=== PATIENT | female | born 1975 | race American Indian/Alaskan Native ===

== ENCOUNTER 2018-07-05 14:26 | Outpatient (CLI) | payer MEDICAID ==
--- NOTE | 2018-07-05 15:47 | Mammography Report ---
BILATERAL DIGITAL DIAGNOSTIC MAMMOGRAM with CAD and RIGHT BREAST ULTRASOUND: 07/05/18 15:00:00 CLINICAL: Right breast lump and pain. COMPARISON:04/06/16 FINDINGS: The breasts are heterogeneously dense, which may obscure small masses.No mass, suspicious architectural distortion or suspicious calcifications. Ultrasound of the right breast (including all four quadrants and the retroareolar area) was performed. A benign cyst at 10 o'clock 5 cm from nipple measures 6 x 4 x 4 mm and correlates with pain and tenderness. A benign cyst at 10 o'clock 3 cm from the nipple measures 7 x 4 x 7 mm and a retroareolar cyst at 6 o'clock measures 7 x 4 x 3 mm. No solid mass or shadowing. IMPRESSION: A few benign cysts and no suspicious finding. BI-RADS CATEGORY: 2 -- Benign RECOMMENDATION: Clinical followup and routine mammographic screening in one year. COMMENT: Patient follow-up letters are generated by our [employer] application.
== END 2018-07-05 14:27 | disposition home or self-care (01) ==
LOC: SPVWC 14:26
PROVIDERS: ATTEND Internal Medicine
DX: N60.01 Solitary cyst of right breast (principal)
CPT/HCPCS: 77066

== ENCOUNTER 2018-08-13 15:21 | Emergency (ER) | payer MEDICAID ==
[2018-08-13 15:40] VITALS: BP 126/73
== END 2018-08-13 16:43 ==
LOC: ED 15:21
DX: R07.89 Other chest pain (principal); R06.00 Dyspnea, unspecified; Z53.21 Procedure and treatment not carried out due to patient leaving prior to being seen by health care provider
CPT/HCPCS: 93005; 93010

== ENCOUNTER 2021-12-22 09:38 | Outpatient (CLI) | payer MEDICAID ==
--- NOTE | 2021-12-22 11:16 | XRay Report ---
RIGHT SHOULDER 3 VIEW(S) INDICATION / CLINICAL INFORMATION: PAIN IN RIGHT SHOULDER M25.511 COMPARISON: None available. FINDINGS: BONES / JOINT(S): No acute fracture or subluxation. No significant arthritis. SOFT TISSUES: No significant abnormality. ADDITIONAL FINDINGS: None. Signer Name: Alessio Mclean MD Signed: 12/22/2021 11:04 AM Workstation Name: [email or web address]
== END 2021-12-22 09:39 | disposition home or self-care (01) ==
LOC: XRAY 09:38
PROVIDERS: ATTEND Orthopaedic Surgery
DX: M25.511 Pain in right shoulder (principal)